=== PATIENT | female | born 1985 | race African-American/Black ===

== ENCOUNTER 2021-04-07 12:27 | Emergency (ER) | payer SELFPAY ==
[2021-04-07] MEDS ORDERED: Ketorolac Tromethamine 30 MG/ML VIAL ONE (13:43)
[2021-04-07] MEDS ORDERED: Ondansetron PF 4 MG/2 ML Vial ONE ×2 (13:44→15:10)
[2021-04-07 13:50] LABS: #Eosinphils 0.2 10x3/uL (0.0-0.5); #Monocytes 0.5 10x3/uL (0.0-1.1); #Neutrophils 3.5 10x3/uL (1.5-8.4); %Basophils 0.7 % (0.0-2.0); %Eosinophils 3.9 % (0.0-6.0); %Lymphocytes 28.6 % (18.0-47.0); %Neutrophils 58.6 % (40.0-75.0); Hemoglobin 11.8 g/dL (12.0-15.5); Mean Corpuscular HGB CONC 31.4 g/dL (32.0-36.0); Mean Corpuscular Hemoglobin 26.1 pg (27.0-33.0); Mean Corpuscular Volume 83.2 fl (81.6-98.3); Platelet Count 310 10x3/uL (150-450); RBC Distribution Width 14.6 % (11.5-14.5); Red Blood Cell (RBC) Count 4.52 10x6/uL (3.90-5.03); White Blood Cell (WBC) Count 5.9 10x3/uL (3.5-10.5)
[2021-04-07 13:51] LABS: Bilirubin Neg (Negative); Blood, Urine 250 (Negative); Clarity Cloudy (Clear); Glucose, Urine (Dipstick) Normal (Negative); Ketone, Urine Negative (Negative); Leukocyte 25 (Negative); Nitrite Negative (Negative); Protein, Urine (Dipstick) 100 mg/dl (Neg-Trace); Urobilinogen Normal mg/dL (Less than 2)
[2021-04-07 13:53] LABS: Pregnancy Test - Urine (BHCG) Negative (Negative)
[2021-04-07 13:55] LABS: Pregu Control Background? CLEAR/WHITE (CLR/WHITE); Pregu Control Bar Appear? YES (CONTROL BAR)
[2021-04-07] MEDS ORDERED: Morphine 4 MG/ML VIAL ONE ×2 (13:56→15:11)
[2021-04-07 14:04] LABS: RBC/HPF Greater than 50 HPF (0-3)
[2021-04-07 14:07] LABS: ALT (SGPT) 71 U/L (8-55); AST (SGOT) 41 U/L (5-34); Albumin 4.2 g/dL (3.5-5.0); Alkaline Phosphatase 251 U/L (40-110); Anion Gap 11 mmol/L (10-20); BUN (Urea Nitrogen) 11 mg/dL (7.0-18.7); Bilirubin, Total 0.3 mg/dL (0.2-1.2); Calc. Creatinine Clearance 0 mL/min (70-130); Calcium 9.5 mg/dL (7.8-10.44); Carbon Dioxide 28 mmol/L (22-29); Chloride 103 mmol/L (98-107); Globulin 4.3 g/dL (2.4-3.5); Glucose 117 mg/dL (70-105); Potassium 3.3 mmol/L (3.5-5.1); Protein, Total 8.5 g/dL (6.0-8.3); Sodium 139 mmol/L (136-145); WBC/HPF 0-3 HPF (0-3)
[2021-04-07 14:08] LABS: Bacteria/HPF Rare-Few HPF (None Seen); Squamous Epithelial 0-3 HPF (0-3)
[2021-04-07] MEDS ORDERED: Potassium Chloride 20 MEQ TAB ONE (15:12)
== END 2021-04-07 16:05 | disposition home or self-care (01) ==
LOC: CSHERS 12:27
DX: N20.0 Calculus of kidney (principal)
CPT/HCPCS: 80053; 81003; 81015; 81025; 85025; 96374; 96375; 96376; J1885; J2270; J2405